=== PATIENT | male | born 1975 | race African-American/Black ===

== ENCOUNTER 2022-05-10 15:14 | Inpatient (IN) ==
[2022-05-10] MEDS ORDERED: FUROSEMIDE 100 MG/10 ML VIAL IV STA (20:15)
[2022-05-10] MEDS ORDERED: ONDANSETRON 4 MG/2 ML VIAL IV STA (20:15)
[2022-05-10] MEDS ORDERED: NITROGLYCERIN 2% OINT 1 INCH/GM PACK TOP STA (20:15)
[2022-05-10] MEDS ORDERED: MORPHINE 2 MG/1 ML SYRINGE IV STA (20:15)
[2022-05-10 20:34] LABS: Basophils % 0.2 % (0.0-0.8); Eosinophils # 0.1 10*3/uL (0.0-0.87); Eosinophils % 1.5 % (0.00-10.9); Hematocrit 45.5 VOL% (42.0-52.0); Hemoglobin 14.3 GM/DL (14.0-18.0); Immature Granulocytes % 0.4 %; Immature Granulocytes Absolute 0.03 #; Lymphocytes # 1.8 10*3/uL (1.4-4.0); Lymphocytes % 21.9 % (21.2-54.2); Mean Corpuscular HGB Conc 31.4 GM/DL (32-36); Mean Platelet Volume 10.2 FL (9.6-12.0); Monocytes # 0.6 10*3/uL (0.11-0.8); Monocytes % 6.9 % (1.7-12.7); Neutrophils % 69.1 % (38.7-73.9); Platelet Count 225 T/CUMM (130-400); Red Blood Count 5.29 MC/CUMM (3.8-5.5); Red Cell Distribution Width 16.7 % (9.3-17.3); White Blood Count 8.1 T/CUMM (4-12)
[2022-05-10 20:44] LABS: INR 1.4; PT Patient Result 15.1 SECS (10.1-12.1)
[2022-05-10 20:57] LABS: Albumin 3.2 G/DL (3.4-5.0); Bilirubin,Total 3.3 MG/DL (0.20-1.00); Osmolality,Calculated 272.8 MOS/KG (273-304); Potassium 4.6 MMOL/L (3.5-5.1); Total Protein 7.6 G/DL (6.4-8.2)
[2022-05-10] MEDS ORDERED: ENOXAPARIN 100 MG/ML SYRINGE SUBCUT STA (21:18)
[2022-05-10] MEDS ORDERED: hydrALAZINE 20 MG/1 ML VIAL IV STA (21:31)
[2022-05-10] MEDS ORDERED: ONDANSETRON 4 MG/2 ML VIAL IV PRN (21:37)
[2022-05-10] MEDS ORDERED: SIMETHICONE CHEW 125 MG TABLET PO PRN (21:37)
[2022-05-10] MEDS ORDERED: ACETAMINOPHEN 325 MG TABLET PO PRN (21:37)
[2022-05-10] MEDS ORDERED: hydrALAZINE 20 MG/1 ML VIAL IV PRN (21:37)
[2022-05-10 21:44] LABS: Bacteria,Urine Occasional /HPF (Few); Glucose,Urine (UA) 500 mg/dL (Negative); Ketones,Urine Negative (Negative); Nitrite,Urine Negative (Negative); Protein,Urine 30 mg/dL (Negative); RBC,Urine 1 /HPF (0-4); Urine Appearance Clear (Clear); Urine Color Yellow (Yellow); Urine Specific Gravity 1.015 (1.001-1.035)
[2022-05-10 21:45] LABS: Bilirubin,Urine Negative (Negative); Blood, Urine Negative (Negative)
[2022-05-10 21:58] LABS: Barbiturates Screen,Urine Negative (Negative); Benzodiazepines Screen,Urine Negative (Negative); Cannabinoid Screen,Urine Negative (Negative); Opiate Screen,Urine Negative (Negative); Phencyclidine Screen,Urine Negative (Negative)
[2022-05-11] MEDS ORDERED: GLUCAGON 1 MG VIAL IM PRN (00:10)
[2022-05-11] MEDS ORDERED: DEXTROSE 10% 250 ML BAG IV PRN (00:11)
[2022-05-11 03:08] LABS: Basophils % 0.2 % (0.0-0.8); Eosinophils # 0.1 10*3/uL (0.0-0.87); Eosinophils % 1.5 % (0.00-10.9); Immature Granulocytes % 0.2 %; Immature Granulocytes Absolute 0.02 #; Lymphocytes # 1.8 10*3/uL (1.4-4.0); Lymphocytes % 21.4 % (21.2-54.2); Mean Corpuscular HGB Conc 32.5 GM/DL (32-36); Mean Corpuscular Volume 84.9 FL (87-102); Mean Platelet Volume 9.7 FL (9.6-12.0); Monocytes # 0.6 10*3/uL (0.11-0.8); Monocytes % 7.6 % (1.7-12.7); Neutrophils % 69.1 % (38.7-73.9); Platelet Count 211 T/CUMM (130-400); Red Blood Count 4.71 MC/CUMM (3.8-5.5); Red Cell Distribution Width 16.2 % (9.3-17.3); White Blood Count 8.2 T/CUMM (4-12)
[2022-05-11 03:32] LABS: Albumin 2.8 G/DL (3.4-5.0); Bilirubin,Total 2.6 MG/DL (0.20-1.00); Calcium 8.5 MG/DL (8.5-10.1); Osmolality,Calculated 283.3 MOS/KG (273-304); Potassium 3.6 MMOL/L (3.5-5.1); Risk Ratio 2.74; Thyroid Stimulating Hormone 1.53 uIU/ml (0.358-3.74); Total Protein 6.7 G/DL (6.4-8.2); VLDL Cholesterol 9.4 MG/DL
[2022-05-11 03:39] LABS: INR 1.5; PT Patient Result 16.3 SECS (10.1-12.1)
[2022-05-11 04:02] LABS: Hepatitis B Core IgM Quant 0.08 Index; Hepatitis B Surface Ag Quant < 0.10 Index; Hepatitis B Surface Ag Result Non-Reactive (NonReactive); Hepatitis C Virus Ab Result Non-Reactive (NonReactive)
[2022-05-11] MEDS ORDERED: hydrALAZINE 25 MG TABLET PO SCH (09:00)
[2022-05-11] MEDS ORDERED: FUROSEMIDE 40 MG/4 ML VIAL IV SCH (09:00)
[2022-05-11] MEDS: INSULIN REGULAR 100 UNIT/ML SUBCUT SCH ×4 (09:48→21:37)
[2022-05-11] MEDS: carvediloL 25 MG TABLET PO SCH ×2 (09:49→21:17)
[2022-05-11] MEDS: DOCUSATE SODIUM 100 MG CAPSULE PO SCH ×2 (09:49→21:17)
[2022-05-11] MEDS: SPIRONOLACTONE 25 MG TABLET PO SCH (09:49)
[2022-05-11] MEDS: ASPIRIN EC 81 MG TABLET PO SCH (09:49)
[2022-05-11] MEDS: ENOXAPARIN 100 MG/ML SYRINGE SUBCUT SCH ×2 (09:50→21:16)
[2022-05-11] MEDS: ISOSORBIDE MONONITRATE 30 MG TABLET PO SCH (09:50)
[2022-05-11] MEDS: ATORVASTATIN 80 MG TABLET PO SCH (09:50)
[2022-05-11] MEDS: PANTOPRAZOLE 40 MG TABLET PO SCH (09:50)
[2022-05-11] MEDS: FUROSEMIDE 40 MG/4 ML VIAL IV SCH (21:16)
[2022-05-12 04:58] LABS: Basophils % 0.2 % (0.0-0.8); Eosinophils # 0.1 10*3/uL (0.0-0.87); Eosinophils % 2.2 % (0.00-10.9); Hematocrit 35.5 VOL% (42.0-52.0); Hemoglobin 11.7 GM/DL (14.0-18.0); Immature Granulocytes % 0.2 %; Immature Granulocytes Absolute 0.01 #; Lymphocytes # 1.4 10*3/uL (1.4-4.0); Lymphocytes % 22.8 % (21.2-54.2); Mean Corpuscular Volume 85.5 FL (87-102); Mean Platelet Volume 10.3 FL (9.6-12.0); Monocytes # 0.5 10*3/uL (0.11-0.8); Monocytes % 8.5 % (1.7-12.7); Neutrophils % 66.1 % (38.7-73.9); Platelet Count 186 T/CUMM (130-400); Red Blood Count 4.15 MC/CUMM (3.8-5.5); Red Cell Distribution Width 16.1 % (9.3-17.3); White Blood Count 6.3 T/CUMM (4-12)
[2022-05-12 05:07] LABS: INR 1.5; PT Patient Result 15.9 SECS (10.1-12.1)
[2022-05-12 05:15] LABS: Calcium 8.7 MG/DL (8.5-10.1); Osmolality,Calculated 278.4 MOS/KG (273-304); Potassium 3.3 MMOL/L (3.5-5.1)
[2022-05-12] MEDS ORDERED: POTASSIUM CHLORIDE 20 MEQ TABLET PO ONE (07:32)
[2022-05-12] MEDS: INSULIN REGULAR 100 UNIT/ML SUBCUT SCH ×4 (08:54→22:46)
[2022-05-12] MEDS: SPIRONOLACTONE 25 MG TABLET PO SCH (08:55)
[2022-05-12] MEDS: DOCUSATE SODIUM 100 MG CAPSULE PO SCH ×2 (08:55→22:45)
[2022-05-12] MEDS: carvediloL 25 MG TABLET PO SCH ×2 (08:55→22:45)
[2022-05-12] MEDS: ASPIRIN EC 81 MG TABLET PO SCH (08:55)
[2022-05-12] MEDS: PANTOPRAZOLE 40 MG TABLET PO SCH (08:56)
[2022-05-12] MEDS: ATORVASTATIN 80 MG TABLET PO SCH (08:56)
[2022-05-12] MEDS: ISOSORBIDE MONONITRATE 30 MG TABLET PO SCH (08:56)
[2022-05-12] MEDS: DAPAGLIFLOZIN 10 MG TABLET PO SCH (08:56)
[2022-05-12] MEDS: APIXABAN 5 MG TABLET PO SCH ×2 (08:59→22:45)
[2022-05-12] MEDS: FUROSEMIDE 40 MG/4 ML VIAL IV SCH (09:02)
[2022-05-12] MEDS ORDERED: MAGNESIUM SULF RIDER 2 GM/50 ML PREMIX IV ONE (10:56)
[2022-05-12] MEDS: FUROSEMIDE 40 MG TABLET PO SCH (16:52)
[2022-05-13 05:38] LABS: Basophils % 0.2 % (0.0-0.8); Eosinophils # 0.1 10*3/uL (0.0-0.87); Hemoglobin 12.3 GM/DL (14.0-18.0); Immature Granulocytes % 0.2 %; Immature Granulocytes Absolute 0.01 #; Lymphocytes # 1.2 10*3/uL (1.4-4.0); Lymphocytes % 20.1 % (21.2-54.2); Mean Corpuscular HGB Conc 32.4 GM/DL (32-36); Mean Corpuscular Volume 85.6 FL (87-102); Mean Platelet Volume 10.1 FL (9.6-12.0); Monocytes # 0.5 10*3/uL (0.11-0.8); Monocytes % 7.6 % (1.7-12.7); Neutrophils % 69.9 % (38.7-73.9); Platelet Count 206 T/CUMM (130-400); Red Blood Count 4.44 MC/CUMM (3.8-5.5); Red Cell Distribution Width 16.4 % (9.3-17.3); White Blood Count 5.9 T/CUMM (4-12)
[2022-05-13 05:47] LABS: INR 1.4; PT Patient Result 15.6 SECS (10.1-12.1)
[2022-05-13 06:01] LABS: Albumin 2.7 G/DL (3.4-5.0); Bilirubin,Direct 0.71 MG/DL (0.0-0.20); Bilirubin,Indirect 1.1 MG/DL (0.0-1.0); Bilirubin,Total 1.8 MG/DL (0.20-1.00); Total Protein 6.5 G/DL (6.4-8.2)
[2022-05-13 06:09] LABS: Calcium 8.4 MG/DL (8.5-10.1); Osmolality,Calculated 278.5 MOS/KG (273-304); Potassium 3.6 MMOL/L (3.5-5.1)
[2022-05-13] MEDS: INSULIN REGULAR 100 UNIT/ML SUBCUT SCH ×2 (07:47→12:23)
[2022-05-13] MEDS: ASPIRIN EC 81 MG TABLET PO SCH (08:41)
[2022-05-13] MEDS: ISOSORBIDE MONONITRATE 30 MG TABLET PO SCH (08:41)
[2022-05-13] MEDS: DOCUSATE SODIUM 100 MG CAPSULE PO SCH (08:42)
[2022-05-13] MEDS: SPIRONOLACTONE 25 MG TABLET PO SCH (08:42)
[2022-05-13] MEDS: DAPAGLIFLOZIN 10 MG TABLET PO SCH (08:42)
[2022-05-13] MEDS: ATORVASTATIN 80 MG TABLET PO SCH (08:42)
[2022-05-13] MEDS: FUROSEMIDE 40 MG TABLET PO SCH (08:42)
[2022-05-13] MEDS: carvediloL 25 MG TABLET PO SCH (08:42)
[2022-05-13] MEDS: PANTOPRAZOLE 40 MG TABLET PO SCH (08:42)
[2022-05-13] MEDS: APIXABAN 5 MG TABLET PO SCH (08:42)
[2022-05-13] MEDS ORDERED: SERTRALINE 50 MG TABLET PO SCH (09:00)
[2022-05-13 11:29] VITALS: BP 120/90
== END 2022-05-13 14:59 | disposition home or self-care (01) | DRG 291 ==
LOC: N.ED 15:14 → N.EDINP 21:30 → N.TELES 23:10
PROVIDERS: ADMIT Internal Medicine; ATTEND Internal Medicine